=== PATIENT | female | born 2000 ===

== ENCOUNTER 2023-12-27 12:27 | Outpatient (CLI) | payer OTHER ==
--- NOTE | 2023-12-27 15:15 | Ultrasound Report ---
PROCEDURE: Transvaginal INDICATIONS: POLYCYSTIC OVARIAN SYN TECHNIQUE: Real-time endovaginal scanning was performed of the pelvic organs, with image documentation. COMPARISON: None. FINDINGS: Uterus: Uterus is anteverted and normal in size at 7.4 x 3.1 x 4.6 cm. The myometrium is homogeneou s. The endometrium measures 3 mm in combined thickness. No endometrial mass or fluid. Ovaries: The right ovary measures 2.1 x 1.1 x 1.3 cm, with a calculated ovarian volume of 1.47 cc. The left ovary measures 2.4 x 2.3 x 1.7 cm, with a calculated ovarian volume of 4.83 cc. The ovaries have a normal sonographic appearance. Less than 12 follicles can be seen in each ovary. No adnexal masses are seen. No cystic lesions measuring greater than 3 cm. Other: No pathologic free abdominal or pelvic fluid. IMPRESSION: Unremarkable pelvic ultrasound. Reviewed by: Alex Rosales MD on 12/27/2023 3:14 PM PDT Approved by: Alex Rosales MD on 12/27/2023 3:14 PM PDT Station ID: [id number]
== END 2023-12-27 12:28 | disposition home or self-care (01) ==
LOC: DI 12:27
PROVIDERS: ATTEND Preventive Medicine Aerospace Medicine
DX: E28.2 Polycystic ovarian syndrome (principal)

== ENCOUNTER 2024-03-25 21:58 | Emergency (ER) | payer OTHER ==
[2024-03-25 22:05] VITALS: BP 118/76; O2SAT 96
[2024-03-25 23:17] LABS: B. PARAPERTUSSIS- RESP PCR PAN NOT DETECTED; B. PERTUSSIS- RESP PCR PANEL NOT DETECTED; C. PNEUMONIAE- RESP PCR PANEL NOT DETECTED; CORONAVIRUS 229E-RESP PCR NOT DETECTED; CORONAVIRUS HKU1-RESP PCR NOT DETECTED; CORONAVIRUS NL63-RESP PCR NOT DETECTED; CORONAVIRUS OC43-RESP PCR NOT DETECTED; HUMAN METAPNEUMOVIRUS NOT DETECTED; INFLUENZA A- RESP PCR PANEL NOT DETECTED; INFLUENZA B - RESP PCR PANEL NOT DETECTED; M. PNEUMONIAE- RESP PCR PANEL NOT DETECTED; PARAINFLUENZA VIRUS 1 NOT DETECTED; PARAINFLUENZA VIRUS 2 NOT DETECTED; PARAINFLUENZA VIRUS 3 NOT DETECTED; PARAINFLUENZA VIRUS 4 NOT DETECTED; RHINOVIRUS/ENTEROVIRUS NOT DETECTED; RSV- RESP PCR PANEL NOT DETECTED; SARS-CoV-2 -RESP PCR PANEL DETECTED
--- NOTE | 2024-03-26 00:03 | ED Physician Documentation ---
History of Present Illness - Stated complaint Stated Complaint: FEVER - Chief complaint Chief Complaint: Fever - History obtained from History obtained from: Patient - Additonal information Additional information: HPI from patient. Patient c/o sore throat, fever Tmax 104, chills, sweats, [employer] cough, myalgias, fatigue. Symptoms began 1-2 days ago. Denies abdominal pain. Has mild generalized ZELAYA. UTD on immunizations. PD PAST MEDICAL HISTORY - Past Medical History Past Medical History: No - Past Surgical History Past Surgical History: Yes HEENT: Tonsil/Adenoidectomy - Present Medications Home Medications: Ambulatory Orders Medication Instructions Recorded Confirmed HYDROcod/ACETAM 5/325 [Barlow 5/325] 1 - 2 tablet PO Q6H PRN #14 tablet 03/26/24 Nirmatrelvir/Ritonavir [Paxlovid 1 each PO UD #1 kit 03/26/24 300-100 mg Dose Pack] - Allergies Allergies/Adverse Reactions: Allergies Allergy/AdvReac Type Severity Reaction Status Date / Time No Known Drug Allergies Allergy Verified 03/25/24 22:00 - Social History Does the pt smoke?: No Smoking Status: Never smoker Does the pt drink ETOH?: No Does the pt have substance abuse?: No - Immunizations Immunizations are current?: Yes - POLST Patient has POLST: No PD ED PE NORMAL - Vitals Vital signs reviewed: Yes - General General: Alert and oriented X 3, No acute distress, Well developed/nourished - HEENT HEENT: PERRL, EOMI, Moist mucous membranes, Pharynx benign - Neck Neck: Supple, no meningeal sign - Cardiac Cardiac: RRR, No murmur - Respiratory Respiratory: No respiratory distress, Clear bilaterally - Neuro Neuro: Alert and oriented X 3 Results - Vitals Vitals: Oxygen O2 Source Room air - Labs Labs: Laboratory Tests 03/25/24 22:05 Nasal Adenovirus (PCR) NOT DETECTED Nasal B. parapertussis DNA (PCR) NOT DETECTED Nasal Coronavir 229E PCR NOT DETECTED Nasal Coronavir HKU1 PCR NOT DETECTED Nasal Coronavir NL63 PCR NOT DETECTED Nasal Coronavir OC43 PCR NOT DETECTED Nasal Enterovir/Rhinovir PCR NOT DETECTED Nasal Influenza B PCR NOT DETECTED Nasal Influenza A PCR NOT DETECTED Nasal Parainfluen 1 PCR NOT DETECTED Nasal Parainfluen 2 PCR NOT DETECTED Nasal Parainfluen 3 PCR NOT DETECTED Nasal Parainfluen 4 PCR NOT DETECTED Nasal RSV (PCR) NOT DETECTED Nasal B.pertussis DNA PCR NOT DETECTED Nasal C.pneumoniae (PCR) NOT DETECTED Prosper Human Metapneumo PCR NOT DETECTED Nasal M.pneumoniae (PCR) NOT DETECTED Nasal SARS-CoV-2 (PCR) DETECTED A PD Medical Decision Making - ED course Complexity details: reviewed results, considered differential, d/w patient ED course: Respiratory nasal swab tests positive for sars-COV-2, which accounts for her symptoms. We discussed options for treatment, both symptomatic as well as targeted. We discussed paxlovid; she does not seem to have any overt risk factors for progression to severe disease (dx migraine should not put her at higher risk, and BMI cutoff is 25, whereas she is 24.5). Nonetheless, she is interested in taking this combination anti-viral and thus I am providing rx for her; I advised her to d/w pharmacist when she gets the rx filled to inquire as to which medications she should avoid regarding interactions. She is given 10mg PO decadron for sore throat and 2 tab vicodin, rx short course of vicodin. Return precautions reviewed. Departure - Departure Disposition: Home, Self Care Clinical Impression: COVID-19 Condition: Good Instructions: ED Viral Syndrome Prescriptions: HYDROcod/ACETAM 5/325 [Barlow 5/325] 1 - 2 tablet PO Q6H PRN #14 tablet PRN Reason: Pain Nirmatrelvir/Ritonavir [Paxlovid 300-100 mg Dose Pack] 1 each PO UD #1 kit Comments: You tested positive for COVID tonight. For sore throat, you were given a one- time dose of steroid (dexamethasone); this helps reduce the inflammation of p haryngitis and, in turn, can reduce the pain of a sore throat. You were also given 2 tablets of Vicodin (narcotic/opiate pain medication) to help with your headache and the overall aches and pains. I have electronically submitted prescriptions for both vicodin as well as Paxlovid to the [facility] pharmacy in [place]. Paxlovid is a kit that comes with 2 different anti-viral medications specifically used for acute COVID infection. If you elect to use the Paxlovid, be sure to ask the pharmacist if it interacts with any of your other medications. You should go to the CDC website regarding recommendations for how long you should isolate/quarantine with COVID. I am prescribing a short course of narcotic pain medication for you. These are potentially dangerous and addictive medications that should be used carefully. These medications may constipate you. Take an [id number] stool softener (docusate) twice daily with plenty of water while taking these medications. If you go 24 hours without a bowel movement, take [id number] miralax, per package instructions. Do not drink or drive while taking these medications. If you received narcotic or sedating medications while in the emergency department, do not drive for 24 hours. Store this medication in a safe, secure place and out of reach of children. It is a violation of federal law to give or sell this medication to another person or to use in a manner other than prescribed. The ED will not refill narcotic prescriptions, including prescriptions lost or stolen. To dispose of unwanted medications: 1. [facility] [address] in [place] has a medication drop box. They accept prescription medications (in pill form) Wednesday through Wednesday 9:00 a.m. to 5:00 p.m. 2. The [facility] [place] [employer] accepts prescription medications (in pill form only) for disposal year round. Call for more information. 3. Contact the [facility] for the next [employer] sponsored prescription drug collection event. , [phone], or [phone]; Note that many narcotic pain relievers also contain Tylenol/acetaminophen. Please ensure that your total dose of acetaminophen from all sources does not exceed 3 g (3000 mg) per day. Discharge Date/Time: 03/26/24 00:44
[2024-03-26] MEDS: CHERRY SYRUP 10 ML UDC PO ONE (00:40)
[2024-03-26] MEDS: DEXAMETHASONE 10 MG/ML VIAL PO STA (00:40)
[2024-03-26] MEDS: HYDROcod/ACETAM 5/325 MG TABLET PO STA (00:40)
== END 2024-03-26 00:44 | disposition home or self-care (01) ==
LOC: ED 21:58
DX: U07.1 COVID-19 (principal)
CPT/HCPCS: 87633; 99283; A9270